=== PATIENT | female | born 1980 | race Caucasian/White ===

== ENCOUNTER 2024-05-03 15:54 | Emergency (ER) | payer OTHER ==
[~2024-05-03] VITALS: Ht 154.9 cm; Wt 52.6 kg
[~2024-05-03 15:54] MED LIST: BACTRIM DS 8001 TA1 PO; CIPRO250 MG PO; CIPROFLOXACIN500 MG PO; CYCLOBENZAPRINE5 M3 PO; DOXYCYCLINE HY100 M3 PO; FLAGYL250 MG PO; FLAGYL500 MG PO; MOTRIN800 MG PO; Motrin,Rufen800 MG PO; NKHM PO; NORCO 325 MG-51 TAB PO; PYRIDIUM200 M1 PO; SUBOXONE 8 MG-1 EACH SL; ZOFRAN ODT4 MG SL
== END 2024-05-03 16:20 | disposition home or self-care (01) ==
LOC: ED 15:54
DX: R40.0 Somnolence (principal); F19.10 Other psychoactive substance abuse, uncomplicated; Z53.29 Procedure and treatment not carried out because of patient's decision for other reasons